=== PATIENT | male | born 1985 ===

== ENCOUNTER 2022-11-05 09:50 | Outpatient (CLI) | payer OTHER ==
[~2022-11-05 09:50] MED LIST: RELAGESIC 5001 EACH PO
== END 2022-11-05 09:53 | disposition home or self-care (01) ==
LOC: SONOGRAMA 09:50
PROVIDERS: ATTEND Pathology Anatomic Pathology & Clinical Pathology
DX: E04.1 Nontoxic single thyroid nodule (principal)